=== PATIENT | female | born 1945 | race Two or more races ===

== ENCOUNTER → 2018-10-18 | Outpatient (CLI) | payer OTHER | END | disposition home or self-care (01) | LOC: MRI 10:17 → NUCLEAR 10-19 13:00 | DX: M25.562 Pain in left knee (principal) | CPT/HCPCS: 73721 ==

== ENCOUNTER → 2018-10-19 | Outpatient (CLI) | payer OTHER | END | disposition home or self-care (01) | LOC: NUCLEAR 12:32 | DX: M25.462 Effusion, left knee (principal); M79.662 Pain in left lower leg ==

== ENCOUNTER → 2019-11-21 | Outpatient (CLI) | payer OTHER | END | disposition home or self-care (01) | LOC: MRI 14:07 | DX: M25.562 Pain in left knee (principal); M54.5 Low back pain | CPT/HCPCS: 73721 ==

== ENCOUNTER 2019-12-07 09:19 | Outpatient (CLI) | payer OTHER | END 2019-12-07 09:23 | disposition home or self-care (01) | LOC: RAD 09:19 | DX: R07.89 Other chest pain (principal) ==

== ENCOUNTER 2020-03-22 08:10 | Outpatient (CLI) | payer OTHER | END 2020-03-22 08:14 | disposition home or self-care (01) | LOC: RAD 08:10 | PROVIDERS: ATTEND Orthopaedic Surgery | DX: M25.562 Pain in left knee (principal) ==

== ENCOUNTER 2022-12-09 09:39 | Outpatient (CLI) | payer OTHER | END 2022-12-09 09:48 | disposition home or self-care (01) | LOC: RAD 09:39 | PROVIDERS: ATTEND Podiatrist | DX: M20.12 Hallux valgus (acquired), left foot (principal); M20.11 Hallux valgus (acquired), right foot ==

== ENCOUNTER 2023-03-17 12:35 | Outpatient (CLI) | payer OTHER | END 2023-03-17 12:39 | disposition home or self-care (01) | LOC: RAD 12:35 | PROVIDERS: ATTEND Orthopaedic Surgery | DX: M25.561 Pain in right knee (principal); M25.562 Pain in left knee ==

== ENCOUNTER 2023-03-24 07:49 | Outpatient (CLI) | payer OTHER | END 2023-03-24 08:06 | disposition home or self-care (01) | LOC: MRI 07:49 | PROVIDERS: ATTEND Orthopaedic Surgery | DX: M25.562 Pain in left knee (principal) | CPT/HCPCS: 73721 ==

== ENCOUNTER 2023-10-01 09:17 | Emergency (ER) | payer OTHER ==
[~2023-10-01] VITALS: Ht 157.5 cm; Wt 77.1 kg
[2023-10-01] MEDS ORDERED: AVAPRO75 MG PO (09:42)
[2023-10-01] MEDS ORDERED: LEVALBUTEROL HCL 0.63 MG/3 ML SOLUTION IH SCH (10:00)
[2023-10-01] MEDS ORDERED: IPRATROPIUM BROMIDE 0.5 MG/2.5 ML AMPUL.NEB IH SCH (10:00)
[2023-10-01] MEDS ORDERED: levoFLOXacin IN DEXTROSE 5 % 500MG/100ML PIGGYBAG IV ONE (10:00)
[2023-10-01] MEDS ORDERED: METHYLPREDNISOLONE SOD SUCC 125 MG VIAL IV ONE (10:00)
[2023-10-01 11:08] LABS: ABG PH 7.434 (7.35-7.45); ABG PO2 80.1 mmHg (80-100); ABG pCO2 39.1 mmHg (35-45); BASE EXCESS 1.4 mmol/l; BICARBONATE 25.6 mmol/l (23-25); SaO2 96.2 %; Tco2 26.8 mmol/l
[2023-10-01 11:09] LABS: allen test SATISFACTORY; o2 21 %; puncture site RADIAL RIGHT
[2023-10-01 11:23] LABS: HEMOGLOBIN 12.2 g/dL (12.0-15.00); MEAN CELL VOLUME 73.5 fL (80.00-100.00); MEAN CORPUSCULAR HEMOGLOBIN 23.7 pg (27.00-32.0); MEAN CORPUSCULAR HGB CONC 32.2 g/dl (32.0-36.0); PLATELET COUNT 213 K/uL (150-450); RED BLOOD COUNT 5.18 M/uL (4.00-6.00); RED CELL DISTRIBUTION WIDTH 15.5 % (11.5-14.5)
== END 2023-10-01 12:40 | disposition home or self-care (01) ==
LOC: ER 09:17
PROVIDERS: Emergency Medicine
DX: J22 Unspecified acute lower respiratory infection (principal); J45.909 Unspecified asthma, uncomplicated; Z88.0 Allergy status to penicillin
CPT/HCPCS: 36415; 71045; 82803; 94640; 96365; 99285; J1956; J2930